=== PATIENT | female | born 1950 | race Caucasian/White ===

== ENCOUNTER 2018-09-07 14:31 | Outpatient (REF) | payer OTHER, SELFPAY ==
[2018-09-07 15:02] LABS: Abs Immature Grans 0.03 k/cumm (0.0-0.09); Absolute Basophil Count 0.04 k/cumm (0.0-0.2); Absolute Eosinophil Count 0.24 k/cumm (0.0-0.7); Absolute Lymphocyte Count 1.37 k/cumm (1.2-3.4); Absolute Monocyte Count 0.67 k/cumm (0.11-0.7); Absolute Neutrophil Count 6.44 k/cumm (1.2-6.7); Basophils % 0.5; Eosinophils % 2.7; HCT 26.9 % (36.0-46.0); HGB 8.1 g/dL (12.0-15.5); Immature Grans % 0.3; Lymphocytes % 15.6; Mean Corp. HGB Concentration 30.1 g/dL (32.0-36.0); Mean Corpuscular Hemoglobin 22.6 pg (27.0-33.0); Mean Corpuscular Volume 75.1 fL (80-95); Mean Platelet Volume 9.5 fL (8.0-11.0); Monocytes % 7.6; Neutrophils % 73.3; Platelet Count 499 x1000/uL (130-400); RBC 3.58 m/cumm (4.00-5.20); RBC Distribution Width 23.3 % (11.7-14.6); White Blood Cell Count 8.79 k/cumm (4.4-10.8)
[2018-09-07 15:22] LABS: Anion Gap 10.7 mmol/L (3-11); BUN 11 mg/dL (7-18); CO2 25.3 mmol/L (21.0-32.0); CREATININE 0.85 mg/dL (0.55-1.02); Calcium 9.3 mg/dL (8.5-10.1); Chloride 103 mmol/L (98-107); Glucose 94 mg/dL (70-100); Potassium 4.6 mmol/L (3.5-5.1); Sodium 139 mmol/L (136-145)
[2018-09-07 15:28] LABS: Anisocytosis 3+; Diff Comment RBC Morph Reviewed; Hypochromasia 3+; Macrocytosis 1+; Microcytosis 1+; Polychromasia Present
[2018-09-07 15:29] LABS: Poikilocytes 2+
== END 2018-09-07 14:51 ==
LOC: LBN 14:31
PROVIDERS: PCP Family Medicine; Visit Provider Family Medicine
DX: I48.91 Unspecified atrial fibrillation (principal); I69.354 Hemiplegia and hemiparesis following cerebral infarction affecting left non-dominant side; R13.10 Dysphagia, unspecified; D62 Acute posthemorrhagic anemia
CPT/HCPCS: 80048; 85025